=== PATIENT | female | born 1950 | race Caucasian/White ===

== ENCOUNTER → 2018-04-03 09:37 | Outpatient (CLI) | payer MEDICARE, OTHER, SELFPAY ==
--- NOTE | 2018-04-03 | DI.MRI.S_ITS ---
PROCEDURE: MR CERVICAL SPINE WO CON INDICATIONS: CERVICAL SPINE RADICULOPATHY TECHNIQUE: Noncontrast sagittal T1 spin echo and T2 fast spin echo, sagittal STIR, foraminal oblique sagittal T2 fast spin echo, and axial gradient echo or T2 fast spin echo through the cervical spine. COMPARISON: None. FINDINGS: Image quality: Excellent. Alignment and Curvature: Grade 1 retrolisthesis of C5 on C6. Bone Marrow: Multilevel degenerative spurring primarily involving the mid to lower cervical spine. Spinal Cord: Visualized spinal cord has normal size and signal. No cerebellar tonsillar herniation. Paraspinous Soft Tissues: No paravertebral masses. Prevertebral soft tissues are normal in thickness. C2-C3: Bilateral uncovertebral arthropathy and posterior intervening disc osteophyte complex, which is mildly asymmetric, right greater than left. Mild bilateral facet disease. No definite canal stenosis. No left foraminal stenosis. Mild right foraminal narrowing C3-C4: Bilateral uncovertebral arthropathy and posterior intervening disc osteophyte complex, and bilateral facet disease, right slightly greater than left. No definite canal stenosis. Mild to moderate right foraminal narrowing. No definite left foraminal stenosis C4-C5: Bilateral uncovertebral arthropathy and posterior intervening disc osteophyte complex, and bilateral facet arthropathy, with minimal canal narrowing partial effacement of the anterior thecal sac. No definite foraminal stenosis. C5-C6: Bilateral uncovertebral arthropathy and posterior intervening disc osteophyte complex, with superimposed right paracentral disc osteophyte protrusion. Bilateral facet arthropathy. Moderate primarily right-sided canal narrowing. Moderate left and right foraminal narrowing C6-C7: Bilateral uncovertebral arthropathy and posterior intervening disc osteophyte complex, and bilateral facet disease. Mild canal narrowing. Severe left and moderate right foraminal stenoses C7-T1: No canal stenosis. Mild bilateral foraminal narrowing IMPRESSION: Multilevel cervical disc degeneration and facet arthropathy. Moderate primarily right sided C5-C6 canal narrowing. Severe C6-C7 left foraminal stenosis. Additional diffuse bilateral foraminal stenoses as detailed above by spinal level. Grade 1 retrolisthesis of C5 on C6. Dictated by: Johnathon Weaver M.D. on 04/03/2018 at 12:51 Approved by: Johnathon Weaver M.D. on 04/03/2018 at 13:00
== END ==
PROVIDERS: PCP Internal Medicine; Visit Provider Orthopaedic Surgery Orthopaedic Surgery of the Spine
DX: M47.22 Other spondylosis with radiculopathy, cervical region (principal)
CPT/HCPCS: 72141

== ENCOUNTER → 2018-04-15 15:01 | Outpatient (CLI) | payer MEDICARE, OTHER, SELFPAY ==
[2018-04-15 15:36] LABS: Add Manual Diff / Slide Review NO; Eosinophils Percent Auto 7.5 % (2-4); Hematocrit 41.6 % (36-46); Hemoglobin 14.1 g/dL (12.0-16.0); Lymphocytes Percent Auto 32.7 % (25-40); Mean Corpuscular HGB Conc 33.9 % (30-36); Mean Corpuscular Volume 94.5 fL (80-100); Monocytes Percent Auto 7.7 % (3-14); Neutrophils Absolute Auto 3200 /uL (3000-5900); Neutrophils Percent Auto 51.1 % (50-75); Platelet Count 226 X10^3/uL (150-400); Red Cell Distribution Width 12.9 % (11.6-14.8); White Blood Cell Count 6.3 X10^3/uL (4.5-11.0)
[2018-04-15 16:18] LABS: BUN Creatinine Ratio 34.3 (6-22); Blood Urea Nitrogen 24 mg/dL (7-17); Calcium 9.7 mg/dL (8.4-10.2); Carbon Dioxide 29 mmol/L (22-32); Chloride 99 mmol/L (98-107); Estimated Glomerular Filt Rate > 60.0 mL/min (>60); Glucose 143 mg/dL (80-110); HEMOLYSIS < 15 (0-50); Potassium 4.3 mmol/L (3.4-5.1); Sodium 139 mmol/L (137-145)
== END ==
PROVIDERS: PCP Internal Medicine; Visit Provider Orthopaedic Surgery Orthopaedic Surgery of the Spine
DX: Z01.818 Encounter for other preprocedural examination (principal)
CPT/HCPCS: 36415; 80048; 85025; 93005

== ENCOUNTER 2018-05-03 06:00 | Day surgery (SDC) | payer MEDICARE, OTHER, SELFPAY ==
[2018-04-24 10:56] VITALS: BMI 21.6
[2018-05-03] VITALS (13 sets, daily range): BP systolic 97–128; BP diastolic 53–77; PULSE 64–76; RESP 10–18; TEMP 36–36.7; O2SAT 95–99; BMI 21.6
--- NOTE | 2018-05-03 07:23 | SUR.OPER ---
Supine on padded OR bed, head on pillow, arm padded and tucked at side, legs uncrossed, safety belt at thigh, tape over blanket over lower legs .
[2018-05-03] MEDS: ACETAMINOPHEN 325 MG TABLET 975 MG PO (07:32)
[2018-05-03] MEDS: LACTATED RINGERS 1,000 ML 42 ML IV (07:33)
--- NOTE | 2018-05-03 08:02 | PM.PREOP ---
Pre-operative Note Interval Note Pre-op Check: History & Physical Reviewed by Physician, Exam Performed and History & Physical exam performed today
[2018-05-03] MEDS: CLINDAMYCIN 600 MG/50 ML PIGGYBACK 50 MG IV ×2 (08:15→16:21)
--- NOTE | 2018-05-03 09:51 | P.OP_ITS ---
Operative Date/Time/Diagnoses - Date of procedure: 05/03/18 Time of procedure: 08:18 Pre-op diagnosis: 1. C5-6, C6-7 spinal stenosis 2. C5-6, C6-7 spondylosis with radiculopathy Post-op diagnosis: same Procedure & Clinicians Procedure: 1. C5-6 C6-7 anterior cervical diskectomy and fusion 2. C5-6 C6-7 anterior interbody cage placement 3. C5-6 C6-7 anterior instrumentation with plate and screw placement in C5, C6 and C7 vertebrae 4. Utilization of microsurgical technique and operating microscope Same procedure as scheduled: Yes Indications: Patient has been having chronic neck pain and worsening cervical radiculopathy. Patient failed multiple conservative management with worsening pain weakness and numbness in her upper extremity. Patient has been having difficulty performing activity of daily living. After discussing risks benefits of treatment options, patient elected proceed with surgery. Surgeon: Gloria Bustamante Horticultural Specialty Grower Field: Rosa Cabral Click Yes if Unassisted: No Anesthesia Type: General Operative Notes Closure Type: primary Specimen(s): none sent Implants & Drains: Globus extend plate and interbody cage Estimated Blood Loss (mL): 50 Blood products transfused: none Procedure in detail: Patient was seen in the preoperative area. Risks and benefits of the surgery was discussed with the patient. Operative consent was obtained and placed in the chart. Patient was then taken to the operative room. Prophylactic antibiotic was given less than 0.5 hr prior to skin incision. General anesthesia was administered. Patient was placed into a supine position on her radiolucent table. Bilateral shoulders were taped down to allow proper C-arm imaging. Anterior cervical area was prepped and draped in a sterile fashion. Time-out was performed at this time. Using lateral C-arm imaging, the level between C5 and C7 was identified and marked on patient's neck. A oblique incision from midline towards medial border of sternocleidomastoid muscle was made. The platysma muscle was incised in line with skin incision. Metzenbaum scissor was used to develop the plane between the medial border of sternocleidomastoid d and the strap muscles medially. The carotid sheath and its contents were identified and protected behind the hand- held retractor during the entire case. The plane between the carotid sheath and strap muscles was developed with Metzenbaum scissors. Dissection was made down to the level of the anterior cervical fascia. Longus colli muscle was incised on the anterior aspect of vertebral bodies bilaterally from C5-C7. Spinal needle was placed into the C5-6 disc space and confirmed with lateral C-arm imaging. Using microsurgical technique and operative microscope, anterior cervical diskectomy was performed at C5-6 and C6-7 level. This was done by removing the disc material, removing the anterior and posterior osteophytes posterior longitudinal ligaments along with performing bilateral foraminotomies at both levels. Patient was found to have severe central and foraminal stenosis at both levels. Patient's stenosis was fully decompressed after decompression was completed. After the diskectomy was completed, 2 anterior interbody cages were obtained. The cages were packed with globus via cell bone grafting material. One cage each along with the bone grafting material was then packed into the interbody spaces from C5-C7 with one cage into each interbody level. After the cages were placed, the anterior cervical plate was stabilized to the C5-C7 vertebrae using 2 screws at each each level. Total 6 screws were placed. After confirming placement of the hardware with AP and lateral C-arm imaging, the screws were locked into the plate using the locking mechanism and torque limiting screwdriver. After the hardware was placed and confirmed with AP and lateral C-arm imaging, the wound was irrigated with sterile normal saline. The platysma muscle and the subcutaneous tissue was closed with 2-0 Vicryl. The skin was closed with 4- 0Monocryl and Steri-Strips. Patient tolerated the procedure well. Patient was transferred recovery room in stable condition. There were no complications. Complications: none Condition: stable Disposition: PACU Plan for aftercare: Admit to inpatient hospital
[2018-05-03] MEDS: hydrOXYzine pamoate 25 MG CAPSULE PO ×2 (10:20→12:30)
[2018-05-03] MEDS: HYDROMORPHONE 1 MG INJ 0.25 MG IV (10:25)
[2018-05-03] MEDS: HYDROMORPHONE 1 MG INJ 0.5 MG IV (10:36)
--- NOTE | 2018-05-03 11:07 | DI.RAD.S_ITS ---
PROCEDURE: XR CERVICAL SPINE 2V OR 3V INDICATIONS: C5-6,67 A C D F TECHNIQUE: 2 view(s) of the cervical spine were acquired. COMPARISON: [facility], MR, MR CERVICAL SPINE WO CON, 04/03/2018, 10:09. FINDINGS: Intraoperative images demonstrate anterior fusion from C5-7. There is mild cervical straightening. IMPRESSION: Intraoperative images as above. Dictated by: Maryellen Sharma M.D. on 05/03/2018 at 11:27 Approved by: Maryellen Sharma M.D. on 05/03/2018 at 11:32
[2018-05-03] MEDS: SODIUM CHLORIDE 0.9% 1,000 ML 100 ML IV ×2 (11:52→22:46)
[2018-05-03] MEDS: HYDROMORPHONE 0.5 MG INJ IV (11:56)
[2018-05-03] MEDS: OXYCODONE IR 5 MG TABLET PO (12:30)
--- NOTE | 2018-05-03 13:16 | PC.NURSE ---
PT ARRIVED FROM PACU AT APPROX 1055. A/XO3. VSS. RA 97% DRSG C/D/I. SOFT COLLAR IN PLACE. DENIES NUMBNESS IN ALL EXTREMITIES. ABLE TO WIGGLE FINGERS. PULSES PALPABLE. REPORTS 8/10 POST-OP PAIN. MEDICATING PER EMAR. IVF INFUSING PER ORDERS. DENIES NAUSEA. ORIENTED TO ROOM AND CALL SYSTEM. CALL LIGHT WITHIN REACH.
[2018-05-03] MEDS: OXYCODONE IR 10 MG TABLET PO ×3 (14:55→21:18)
--- NOTE | 2018-05-03 15:05 | PT.IIE ---
Current Diagnoses Spondylolisthesis, cervical region (05/03/18) Other spondylosis with radiculopathy, cervical region (05/03/18) Spinal stenosis, cervical region (05/03/18) Surgery Performed Operation Date: 05/03/18 07:45 Actual Procedures p C5-6, C6-7 ACDF w/ Anterior Instrumentation(Not Applicable) - Gloria Bustamante MD Surgical History (Last Updated 04/24/18 @ 11:17 by Rachel Boykin RN) Hx of appendectomy (Acute) Hx of tonsillectomy (Acute) Medical History (Last Updated 04/24/18 @ 11:19 by Rachel Boykin RN) Anxiety and depression (Acute) Arthritis (Acute) BCC (basal cell carcinoma) (Acute) Bronchitis (Acute) GERD (gastroesophageal reflux disease) (Acute) Numbness and tingling (Acute) Seasonal allergies (Acute) Sinus infection (Acute) [place] teeth removed (Acute) Physical Therapy Inpatient Evaluation/Re-Eval M1 PT/OT-IP Prior Functional Status Start: 05/03/18 15:49 Freq: NEEDED Status: Active Protocol: Document 05/03/18 15:05 AB (Rec: 05/03/18 16:01 AB [email or web address]) Medical Review Prior Functional Status Medical History Reviewed Yes Mobility and Gait pt stated that she is independent with all mobilities and ambulation without AD. Social History Household Members spouse Living Arrangements House Number of Floors (Floors) Two Floors Number of Stairs To Enter/Railing? no steps to enter; stays on main level of the house has a daylight basement with 15 steps with L rail ascending where the guest room and exercise room is located Home Environment High Toilet Walk in Shower Built-In Shower Seat Home Equipment Hand Held Shower Employment Status Retired M2 PT-IP Current Condition Start: 05/03/18 15:49 Freq: NEEDED Status: Active Protocol: Document 05/03/18 15:05 AB (Rec: 05/03/18 16:01 AB [email or web address]) Physical Therapy Current Condition Current Condition Evaluation Date 05/03/18 Treatment Diagnosis s/p C5-6, C6-7 anterior cervical discectomy and fusion Onset Date 05/03/18 Precautions Cervical Spine Precautions Soft Collar for Comfort No Heavy Lifting Log Roll M3 PT-IP Subjective Start: 05/03/18 15:49 Freq: NEEDED Status: Active Protocol: Document 05/03/18 15:05 AB (Rec: 05/03/18 16:01 AB [email or web address]) Subjective Physical Therapy Visit Type Type Initial Evaluation Visit Start Time 15:05 Visit Stop Time 15:50 Total Visit Minutes 45 Number of POWER EQUIPMENT MECHANICS INSTRUCTOR Visits 0 Physical Therapy Visit Comments Patient Comments pt agreeable to do therapy; requesting to use the toilet Therapy Pain Assessment Pain When Pain Assessed At Rest Pain Present Pain Present Pain Reported Location Neck Intensity 6 Scale Used Numeric (1 - 10) Pain Management Techniques Timing of Activity with Medications M4 PT-IP Mobility and Gait Start: 05/03/18 15:49 Freq: NEEDED Status: Active Protocol: Document 05/03/18 15:05 AB (Rec: 05/03/18 16:01 AB [email or web address]) PT-Bed Mobility Assessment Rolling Type of Rolling Log Rolling Level of Assist Standby Assistance Supine to Sit Supine to Sit Standby Assistance Sit to Supine Sit to Supine Standby Assistance Scooting Scooting to Edge of Bed Standby Assistance PT-Transfer Assessment Sit to and From Stand Sit to and from Stand Standby Assistance Comments Mobility Comments pt ambulated to the toilet without AD CGA with unsteady gait. pt was able to complete toileting without assist. pt ambulated from toilet towards the sink without AD and was able to maintain standing balance using counter for support SBA while completing hand washing. Gait Assessment Gait Gait Assistance Required: Contact Guard Assist Distance (Feet) (feet) 20 Able to Maintain Weight Bearing Status Yes During Gait Assistive Devices Assistive Device Gait Belt Gait Deviations General Gait Pattern Decreased Stride Length Decreased Feet Clearance Factors Limiting Gait Function Factors Limiting Gait Function Decreased Activity Tolerance Decreased Strength Pain PT-Balance Assessment Sitting Balance and Reactions Static Sitting Balance Ability Good Dynamic Sitting Balance Ability Good Standing Balance and Reactions Static Standing Balance Ability Good Dynamic Standing Balance Ability Fair M5 PT-IP Objective Assessments Start: 05/03/18 15:49 Freq: NEEDED Status: Active Protocol: Document 05/03/18 15:05 AB (Rec: 05/03/18 16:01 AB [email or web address]) Orientation Orientation/Cognition Level of Alertness Alert Orientation Name Age Birthday Month Date Year Day of Week Place Situation Safety Awareness Understands Safety Issues Gross Range of Motion Lower Extremity ROM Assessment Within Functional Limits Strength Lower Extremity Strength Assessment Within Functional Limits M6 PT-IP Treatment Start: 05/03/18 15:49 Freq: NEEDED Status: Active Protocol: Document 05/03/18 15:05 AB (Rec: 05/03/18 16:01 AB [email or web address]) Physical Therapy Treatment Education Education Provided Precautions Weight Bearing Status Post-Op Packet Safety Brace Education Donning [place] Patient Other Treatments Other Treatment Performed pt with soft cervical collar on upon eval; educated on donning/doffing soft collar and able to complete safely M7 PT-IP Assessment and Plan Start: 05/03/18 15:49 Freq: NEEDED Status: Active Protocol: Document 05/03/18 15:05 AB (Rec: 05/03/18 16:01 AB [email or web address]) PT Summary Assessment and Plan Potential Rehabilitation Potential Good Status of Condition at Evaluation Stable Summary Impairments Pain ROM Strength Balance Bed Mobility Transfers Gait Activity Tolerance Assessment Summary pt requiring CGA with mobility with a little unsteadiness during ambulation. pt just had surgery this morning and will continue to assess mobility for safety and if pt will require AD to assist with ambulation but pt will likely progress during hospital stay . pt will have her spouse assist her at home. Goals Bed Mobility Goal Independent Transfer Goal Independent Gait Goal Independent Gait Distance 200 Other Goals up/down 15 steps with L rail descending Days to Meet Goals 2 Frequency of Treatment Frequency Of Treatment Twice a Day Treatment Plan Physical Therapy Treatment Plan Bed Mobility Training Transfer Training Gait Training Therapeutic Exercise Balance Retraining Post Op Education Discharge Planning Hot or Cold Pack Neuromuscular Re-ed Coordination Retraining Manual Therapy Other Recommendations and Next Treatment ambulation, stair climbing Focus Recommendations To Nursing Amount of Assist Needed Standby Assistance Discharge Recommendations PT Discharge Recommendations Home with Assistance
[2018-05-03] MEDS: MONTELUKAST 10 MG TABLET PO (18:25)
[2018-05-03] MEDS: ROSUVASTATIN 10 MG TABLET 5 MG PO (18:25)
[2018-05-03] MEDS: TRAZODONE 50 MG TABLET 150 MG PO (21:18)
[2018-05-03] MEDS: DOCUSATE 100 MG CAPSULE PO (21:19)
[2018-05-03] MEDS: SENNOSIDES 8.6 MG TABLET 17.2 MG PO (21:19)
[2018-05-04] MEDS: CLINDAMYCIN 600 MG/50 ML PIGGYBACK 50 MG IV (00:13)
[2018-05-04] MEDS: OXYCODONE IR 10 MG TABLET PO ×4 (00:16→12:07)
[2018-05-04 00:22] VITALS: BP 103/58; PULSE 78; RESP 18; TEMP 36.7; O2SAT 95
[2018-05-04 04:39] VITALS: BP 100/58; PULSE 68; RESP 19; TEMP 36.3; O2SAT 99
[2018-05-04 05:37] LABS: Hematocrit 36.4 % (36-46); Hemoglobin 12.2 g/dL (12.0-16.0)
--- NOTE | 2018-05-04 07:47 | PM.DS.1 ---
History of Present Illness Date Patient Seen: 05/04/18 Time Patient Seen: 07:47 Chief complaint: [id number] C5-6 C6-7 ACDF W/ANT Narrative: Patient's pain is mild. She had a smoothly last night. She has been drinking water without difficulty. No shortness of breath or chest pain. No fever chills. Able to get up and use the restroom several times. Her 's home and available to assist her. Discharge Providers Date of admission: 05/03/18 06:49 Primary care physician: Verna Farris MD Consults: 05/03/18 11:15 Consult to Occupational Therapy Evaluate & Treat Comment: Physician Instructions: Evaluate and treat Consult to Physical Therapy Evaluate & Treat Comment: Physician Instructions: Evaluate and Treat 05/03/18 20:42 Consult to Respiratory Therapy Evaluate & Treat Comment: pt's expressed concern about possible TRACY Physician Instructions: Evaluate and treat Discharge provider: Marcellus Cerda PA-C Summary Discharge Diagnosis: Postop day 1 status post C5-C6, C6-C7 anterior cervical diskectomy and fusion, C5-C6-C6-C7 anterior interbody cage placement, C5-6 C6-C7 anterior instrumentation with plate and screw placement in C5, C6 and C7 vertebrae. Hospital Course: Patient has been having chronic neck pain and worsening cervical radiculopathy. Patient failed multiple conservative management with worsening pain weakness and numbness in her upper extremity. Patient has been having difficulty performing activity of daily living. After discussing risks benefits of treatment options, patient elected proceed with surgery. Surgeon: Gloria Bustamante Tow Motor Mechanic: Rosa Cabral Click Yes if Unassisted: No Anesthesia Type: General Patient back in her room recovering well and has in stable condition. She is not having any difficulty swallowing. She feels ready for discharge home. Will discharge home today in stable condition. Exam Vital Signs (past 8 hours): Vital Signs - 8 hr 05/04/18 00:22 05/04/18 04:39 Temperature 98.0 F 97.4 F L Pulse Rate 78 68 Respiratory Rate 18 19 Blood Pressure 103/58 L 100/58 L Pulse Oximetry 95 99 Pulse Oximetry 99 Oxygen Delivery Method Room Air Oxygen Flow Rate 0 Narrative Exam Narrative: Pleasant 67-year-old female resting comfortably in bed in no apparent distress. Cervical dressing is clean, dry and intact. 5/5 strength with elbow flexion, elbow extension, wrist flexion and extension, finger flexion compared bilaterally. Sensation grossly intact to light touch bilateral upper extremities. Objective Labs Result Diagrams: 05/04/18 05:21 Labs: Laboratory Results - last 24 hr 05/04/18 05:21 Hgb 12.2 Hct 36.4 Discharge Plan Discharge Plan Patient Disposition: Home, Self-Care Discharge comment: Discharge home today. Patient given prescription for oxycodone to be taken as directed. Patient also given Vistaril for nausea and muscle spasms. Discharge Med Rec/Prescriptions Prescriptions: New oxycodone 5 mg Tablet 5 mg PO Q3HR PRN (Reason: Pain, Moderate) Qty: 45 RF: 0 hydroxyzine pamoate 25 mg Capsule 25 mg PO Q4HR PRN (Reason: Nausea And Vomiting) Qty: 30 RF: 0 Continue valacyclovir 500 mg Tablet 500 mg PO DAILY PRN (Reason: genital herpes) RF: 0 citalopram 20 mg Tablet 20 mg PO QAM RF: 0 lorazepam 0.5 mg Tablet 0.5 mg PO DAILY PRN (Reason: Anxiety) RF: 0 trazodone 150 mg Tablet 150 mg PO BEDTIME RF: 0 montelukast 10 mg Tablet 10 mg PO QPM RF: 0 rosuvastatin [Crestor] 5 mg Tablet 5 mg PO QPM RF: 0 fexofenadine-pseudoephedrine [Rafaela-D 24 Hour] 180-240 mg Tablet Extended Release 24 Hr 1 tab PO QAM PRN (Reason: seasonal allergies) RF: 0 Discontinued meloxicam 7.5 mg Tablet 7.5 mg PO DAILY PRN (Reason: pain) RF: 0 Provider Discharge Instructions Diet: Diet as Tolerated Activity: Soft collar for comfort. Limit bending, lifting, twisting Discharge Data Primary Care Provider: Verna Farris Attending Provider: Gloria Bustamante Admit Date/Time: 05/03/18 06:49
--- NOTE | 2018-05-04 07:52 | P.DS_ITS ---
History of Present Illness Date Patient Seen: 05/04/18 Time Patient Seen: 07:47 Chief complaint: [id number] C5-6 C6-7 ACDF W/ANT Narrative: Patient's pain is mild. She had a smoothly last night. She has been drinking water without difficulty. No shortness of breath or chest pain. No fever chills. Able to get up and use the restroom several times. Her 's home and available to assist her. Discharge Providers Date of admission: 05/03/18 06:49 Primary care physician: Verna Farris MD Consults: 05/03/18 11:15 Consult to Occupational Therapy Evaluate & Treat Comment: Physician Instructions: Evaluate and treat Consult to Physical Therapy Evaluate & Treat Comment: Physician Instructions: Evaluate and Treat 05/03/18 20:42 Consult to Respiratory Therapy Evaluate & Treat Comment: pt's expressed concern about possible TRACY Physician Instructions: Evaluate and treat Discharge provider: Marcellus Cerda PA-C Summary Discharge Diagnosis: Postop day 1 status post C5-C6, C6-C7 anterior cervical diskectomy and fusion, C5-C6-C6-C7 anterior interbody cage placement, C5-6 C6- C7 anterior instrumentation with plate and screw placement in C5, C6 and C7 vertebrae. Hospital Course: Patient has been having chronic neck pain and worsening cervical radiculopathy. Patient failed multiple conservative management with worsening pain weakness and numbness in her upper extremity. Patient has been having difficulty performing activity of daily living. After discussing risks benefits of treatment options, patient elected proceed with surgery. Surgeon: Gloria Bustamante Housekeeper Head: Rosa Cabral Click Yes if Unassisted: No Anesthesia Type: General Patient back in her room recovering well and has in stable condition. She is not having any difficulty swallowing. She feels ready for discharge home. Will discharge home today in stable condition. Exam Vital Signs (past 8 hours): Vital Signs - 8 hr 3 05/04/18 00:22 05/04/18 04:39 Temperature 98.0 F 97.4 F L Pulse Rate 78 68 Respiratory Rate 18 19 Blood Pressure 103/58 L 100/58 L Pulse Oximetry 95 99 Pulse Oximetry 99 Oxygen Delivery Method Room Air Oxygen Flow Rate 0 Narrative Exam Narrative: Pleasant 67-year-old female resting comfortably in bed in no apparent distress. Cervical dressing is clean, dry and intact. 5/5 strength with elbow flexion, elbow extension, wrist flexion and extension, finger flexion compared bilaterally. Sensation grossly intact to light touch bilateral upper extremities. Objective Labs Result Diagrams: 05/04/18 05:21 Labs: Laboratory Results - last 24 hr 05/04/18 05:21 Hgb 12.2 Hct 36.4 Discharge Plan Discharge Plan Patient Disposition: Home, Self-Care Discharge comment: Discharge home today. Patient given prescription for oxycodone to be taken as directed. Patient also given Vistaril for nausea and muscle spasms. Discharge Med Rec/Prescriptions Prescriptions: New oxycodone 5 mg Tablet 5 mg PO Q3HR PRN (Reason: Pain, Moderate) Qty: 45 RF: 0 hydroxyzine pamoate 25 mg Capsule 25 mg PO Q4HR PRN (Reason: Nausea And Vomiting) Qty: 30 RF: 0 Continue valacyclovir 500 mg Tablet 500 mg PO DAILY PRN (Reason: genital herpes) RF: 0 citalopram 20 mg Tablet 20 mg PO QAM RF: 0 lorazepam 0.5 mg Tablet 0.5 mg PO DAILY PRN (Reason: Anxiety) RF: 0 trazodone 150 mg Tablet 150 mg PO BEDTIME RF: 0 montelukast 10 mg Tablet 10 mg PO QPM RF: 0 rosuvastatin [Crestor] 5 mg Tablet 5 mg PO QPM RF: 0 fexofenadine-pseudoephedrine [Rafaela-D 24 Hour] 180-240 mg Tablet Extended Release 24 Hr 1 tab PO QAM PRN (Reason: seasonal allergies) RF: 0 Discontinued meloxicam 7.5 mg Tablet 7.5 mg PO DAILY PRN (Reason: pain) RF: 0 Provider Discharge Instructions Diet: Diet as Tolerated Activity: Soft collar for comfort. Limit bending, lifting, twisting Discharge Data Primary Care Provider: Verna Farris Attending Provider: Gloria Bustamante Admit Date/Time: 05/03/18 06:49
[2018-05-04 08:00] VITALS: BP 114/55; PULSE 73; RESP 18; TEMP 36.4; O2SAT 100
[2018-05-04] MEDS: CITALOPRAM 20 MG TABLET PO (08:18)
[2018-05-04] MEDS: DOCUSATE 100 MG CAPSULE PO (08:18)
[2018-05-04] MEDS: hydrOXYzine pamoate 25 MG CAPSULE PO (08:18)
--- NOTE | 2018-05-04 09:05 | PT.IPTN ---
Current Diagnoses Spondylolisthesis, cervical region (05/03/18) Other spondylosis with radiculopathy, cervical region (05/03/18) Spinal stenosis, cervical region (05/03/18) Surgery Performed Operation Date: 05/03/18 07:45 Actual Procedures p C5-6, C6-7 ACDF w/ Anterior Instrumentation(Not Applicable) - Gloria Bustamante MD Physical Therapy Treatment Note M2 PT-IP Current Condition Start: 05/03/18 15:49 Freq: NEEDED Status: Active Protocol: Document 05/03/18 15:05 AB (Rec: 05/03/18 16:01 AB [email or web address]) Physical Therapy Current Condition Current Condition Evaluation Date 05/03/18 Treatment Diagnosis s/p C5-6, C6-7 anterior cervical discectomy and fusion Onset Date 05/03/18 Precautions Cervical Spine Precautions Soft Collar for Comfort No Heavy Lifting Log Roll M3 PT-IP Subjective Start: 05/03/18 15:49 Freq: NEEDED Status: Active Protocol: Document 05/04/18 09:05 AB (Rec: 05/04/18 10:05 AB [email or web address]) Subjective Physical Therapy Visit Type Type Treatment Note Visit Start Time 09:05 Visit Stop Time 09:21 Total Visit Minutes 16 Number of WEIGHT CLERK Visits 0 Physical Therapy Visit Comments Patient Comments pt stated that she is ready to go home today Therapy Pain Assessment Pain When Pain Assessed At Rest Pain Present Pain Present Pain Reported Location Neck Intensity 3 Scale Used Numeric (1 - 10) Description Spasm Pain Management Techniques Timing of Activity with Medications M4 PT-IP Mobility and Gait Start: 05/03/18 15:49 Freq: NEEDED Status: Active Protocol: Document 05/04/18 09:05 AB (Rec: 05/04/18 10:05 AB [email or web address]) PT-Bed Mobility Assessment Supine to Sit Supine to Sit Standby Assistance Sit to Supine Sit to Supine Standby Assistance Scooting Scooting to Edge of Bed Standby Assistance PT-Transfer Assessment Sit to and From Stand Sit to and from Stand Standby Assistance Gait Assessment Gait Gait Assistance Required: Standby Assistance Contact Guard Assist Distance (Feet) (feet) 200 Able to Maintain Weight Bearing Status Yes During Gait Assistive Devices Assistive Device Gait Belt Orthotic/Prosthetic Devices or Brace: No Factors Limiting Gait Function Factors Limiting Gait Function Decreased Activity Tolerance Decreased Strength Pain Poor Balance Stair Climbing Assessment Evaluation Level of Assist On Stairs Standby Assistance Devices Stair Climbing Assistive Devices Left Railing Technique/Endurance Stair Climbing Direction Ascend and Descend Stair Climbing Technique Step Over Step Number of Steps Climbed 3 Query Text: Stair Climbing Set # Repetitions (reps) 2 M5 PT-IP Objective Assessments Start: 05/03/18 15:49 Freq: NEEDED Status: Active Protocol: Document 05/03/18 15:05 AB (Rec: 05/03/18 16:01 AB [email or web address]) Orientation Orientation/Cognition Level of Alertness Alert Orientation Name Age Birthday Month Date Year Day of Week Place Situation Safety Awareness Understands Safety Issues Gross Range of Motion Lower Extremity ROM Assessment Within Functional Limits Strength Lower Extremity Strength Assessment Within Functional Limits M6 PT-IP Treatment Start: 05/03/18 15:49 Freq: NEEDED Status: Active Protocol: Document 05/04/18 09:05 AB (Rec: 05/04/18 10:05 AB [email or web address]) Physical Therapy Treatment Education Education Provided Precautions Safety M7 PT-IP Assessment and Plan Start: 05/03/18 15:49 Freq: NEEDED Status: Active Protocol: Document 05/04/18 09:05 AB (Rec: 05/04/18 10:05 AB [email or web address]) PT Summary Assessment and Plan Potential Rehabilitation Potential Good Summary Impairments Pain ROM Strength Balance Bed Mobility Transfers Gait Activity Tolerance Progress Towards Goals Progressing Toward Goals Assessment Summary pt doing well with mobility. continues to have unsteadiness with ambulation but without LOB. spouse stated that he is going to walk with her at all times until pt. is steadier. pt plans to go home today. Goals Bed Mobility Goal Independent Transfer Goal Independent Gait Goal Independent Gait Distance 200 Other Goals up/down 15 steps with L rail descending Days to Meet Goals 2 Frequency of Treatment Frequency Of Treatment Twice a Day Treatment Plan Physical Therapy Treatment Plan Bed Mobility Training Transfer Training Gait Training Therapeutic Exercise Balance Retraining Post Op Education Discharge Planning Hot or Cold Pack Neuromuscular Re-ed Coordination Retraining Manual Therapy Other Recommendations and Next Treatment ambulation, stair climbing Focus Recommendations To Nursing Amount of Assist Needed Standby Assistance Discharge Recommendations PT Discharge Recommendations Home with Assistance
--- NOTE | 2018-05-04 11:46 | OT.IP.EVAL ---
Current Diagnoses Spondylolisthesis, cervical region (05/03/18) Other spondylosis with radiculopathy, cervical region (05/03/18) Spinal stenosis, cervical region (05/03/18) Surgery Performed Operation Date: 05/03/18 07:45 Actual Procedures p C5-6, C6-7 ACDF w/ Anterior Instrumentation(Not Applicable) - Gloria Bustamante MD Past Medical History (Last Updated 04/24/18 @ 11:19 by Rachel Boykin RN) Anxiety and depression (Acute) Arthritis (Acute) BCC (basal cell carcinoma) (Acute) Bronchitis (Acute) GERD (gastroesophageal reflux disease) (Acute) Numbness and tingling (Acute) Seasonal allergies (Acute) Sinus infection (Acute) [place] teeth removed (Acute) Surgical History (Last Updated 04/24/18 @ 11:17 by Rachel Boykin RN) Hx of appendectomy (Acute) Hx of tonsillectomy (Acute) Occupational Therapy Inpatient Evaluation/Re-Eval M1 PT/OT-IP Prior Functional Status Start: 05/03/18 15:49 Freq: NEEDED Status: Active Protocol: Document 05/04/18 11:38 ADH (Rec: 05/04/18 11:46 ADH [id number]) Medical Review Prior Functional Status Medical History Reviewed Yes Mobility and Gait pt stated that she is independent with all mobilities and ambulation without AD. Social History Household Members spouse Living Arrangements House Number of Floors (Floors) Two Floors Number of Stairs To Enter/Railing? no steps to enter; stays on main level of the house has a daylight basement with 15 steps with L rail ascending where the guest room and exercise room is located Home Environment High Toilet Walk in Shower Built-In Shower Seat Home Equipment Hand Held Shower Employment Status Retired Additional Social History Comment Pt's spouse very supportive, able to provide assistance prn M2 OT-IP Current Condition Start: 05/04/18 11:38 Freq: Status: Active Protocol: Document 05/04/18 11:38 ADH (Rec: 05/04/18 11:46 ADH [id number]) Occupational Therapy Current Condition Post Operative Precautions Cervical Spine Precautions Soft Collar for Comfort No Heavy Lifting Log Roll M3 OT- IP Subjective and Pain Start: 05/04/18 11:38 Freq: Status: Active Protocol: Document 05/04/18 11:38 ADH (Rec: 05/04/18 11:46 ADH [id number]) OT- Subjective Occupational Therapy Visit Type Type Treatment Note Visit Start Time 11:05 Visit Stop Time 11:37 Occupational Therapy Visit Comments Patient/Caregiver Goals caregiver present and agreeable to OT recommendations OT Pain Assessment Pain Present Pain Present Denied Pain M4 OT- IP ADL's Start: 05/04/18 11:38 Freq: Status: Active Protocol: Document 05/04/18 11:38 ADH (Rec: 05/04/18 11:46 ADH [id number]) OT ADL-Dressing General Eval Upper Body Dressing Ability Independent Lower Body Dressing Ability Contact Guard Assistance Areas Needing Assistance Shoes Comments OT Dressing Comments Pt able to complete TB dressing seated/standing EOB, needing A only to lace up shoes. OT ADL-Toileting General Evaluation Toileting Ability Standby Assistance M6 OT- IP Functional Cognition Start: 05/04/18 11:38 Freq: Status: Active Protocol: Document 05/04/18 11:38 ADH (Rec: 05/04/18 11:46 ADH [id number]) Cognitive Factors Limiting Selfcare Function Cognitive Ability Level of Alertness Alert Patient Orientation Name Month Date Year Day of Week Place Situation Attention Span Ability Capable of Focused Attention Capable of Sustained Attention Ability to Follow Commands Able to Follow Multi-Step Commands Memory Description No Deficits Noted Safety Awareness No Deficits Noted Problem Solving Ability No deficits Noted Executive Function Ability No Deficits Noted Abstract Thinking Ability No Deficits Noted OT- Vision and Hearing OT- Hearing Assessment OT- Hearing Assessment WFL OT- Vision Assessment Visual Acuity WFL M7 OT- IP Mobility and Balance Start: 05/04/18 11:38 Freq: Status: Active Protocol: Document 05/04/18 11:38 ADH (Rec: 05/04/18 11:46 ADH [id number]) OT- Bed Mobility Assessment Rolling Type of Rolling Log Rolling Level of Assistance Independent Supine to Sit Supine to Sit Assist Independent Sit to Supine Sit to Supine Assist Independent Scooting Scooting to Edge of Bed Independent OT-Transfer Assessment Sit to and From Stand Sit to and from Stand Standby Assistance Transfers Transfer Ability Standby Assistance Technique Transfer Destination Bed Chair Transfer Technique Stand Step Pivot Devices Transfer Assistive Devices None OT- Gait Assessment Gait Gait Assistance Required: Standby Assistance M8 OT- IP Objective Assessments Start: 05/04/18 11:38 Freq: Status: Active Protocol: Document 05/04/18 11:38 ADH (Rec: 05/04/18 11:46 ADH [id number]) OT Gross Range of Motion Upper Extremity Range of Motion Assessment Within Functional Limits ROM Impairments pt c/o 'heavy' 'weak' feeling in b shoulders OT Strength Upper Extremity Strength Assessment Within Functional Limits M9 OT- IP Assessment and Plan Start: 05/04/18 11:38 Freq: Status: Active Protocol: Document 05/04/18 11:38 ADH (Rec: 05/04/18 11:46 ADH [id number]) OT Summary Assessment and Plan Potential Rehabilitation Potential Excellent Analytic Complexity at Evaluation Low Summary Progress Towards Goals Safe For Discharge Goals Met Assessment Summary Pt with excellent progression in returning to PLOF s/p cervical procedure. Pt safe for d/c home with spouse support, all needs met. Pt at CGA/SBA level for bADLs at this time, no AD. Goals Patient/Caregiver Education Goal Caregiver Independent Assisting Patient Frequency of Treatment Frequency Of Treatment Once a Day Treatment Plan OT Treatment Plan ADL Training Functional Mobility Patient/Family Education Discharge Planning Discharge Recommendations OT Discharge Recommendations Home with Assistance Home Equipment Needs no equipment needs
--- NOTE | 2018-05-04 13:33 | PC.NURSE ---
Feels ready for d/c home. Throat still sore, hard to swallow but can w/out choking. Discussed if this persists or gets worse she needs to make her doctor aware. Discussed use of ice pack to the back of the neck, cervical collar, utilizing cool or cold fluids and foods. Softer warmed foods can make swallowing easier. Has seen PT/OT and received their final instructions. Spouse here at time of d/c. Rx called in by Dr. Alba for vistaril and received rx for oxycodone printed this am. Reviewed general d/c instructions. Questions answered. Pt d/c home via auto w/spouse.
== END 2018-05-04 12:55 | disposition home or self-care (01) ==
LOC: AC 05-04 11:55 → OR 05-04 13:43 → AC 05-04 13:44
PROVIDERS: PCP Internal Medicine; Visit Provider Orthopaedic Surgery Orthopaedic Surgery of the Spine
PROC: (CPT 22551; principal; 2018-05-03 07:45)
DX: M47.22 Other spondylosis with radiculopathy, cervical region (principal); M43.12 Spondylolisthesis, cervical region; M48.02 Spinal stenosis, cervical region
CPT/HCPCS: 22551; 22552; 22853; 22845; 36415; 36592; 72040; 76001; 85014; 85018; 97116; 97161; 97530; 97535; C1776; J1100; J1170; J2250; J2405; J2704; J3010

== ENCOUNTER → 2018-07-23 15:21 | Outpatient (CLI) | payer MEDICARE, OTHER, SELFPAY ==
[2018-05-03 10:56] VITALS: BMI 21.6
--- NOTE | 2018-07-23 | DI.MG.S_ITS ---
BILATERAL DIGITAL SCREENING MAMMOGRAM 3D/2D WITH CAD: 07/23/2018 CLINICAL: Routine screening. Comparison is made to exams dated: 05/07/2017 mammogram, 06/12/2016 mammogram, and 06/07/2015 mammogram - [facility]. The tissue of both breasts is extremely dense, which lowers the sensitivity of mammography. Current study was also evaluated with a Computer Aided Detection (CAD) system. No significant masses, calcifications, or other findings are seen in either breast. There is a linear scar marker overlying the upper right breast/axilla. There has been no significant interval change. IMPRESSION: NEGATIVE There is no mammographic evidence of malignancy. A 1 year screening mammogram is recommended. This exam was interpreted at Station ID: [id number]. NOTE: For mammograms, a report in lay terms will be sent to the patient. Approximately 15% of breast malignancies will not be visualized mammographically. In the management of a palpable breast mass, a negative mammogram must not discourage biopsy of a clinically suspicious lesion. Electronically Signed By: Ambrosio Perdomo M.D. ecl/:07/23/2018 23:26:23 letter sent: Normal Exam ACR BI-RADS Category 1: Negative 3341F
== END ==
PROVIDERS: PCP Internal Medicine; Visit Provider Internal Medicine
DX: Z12.31 Encounter for screening mammogram for malignant neoplasm of breast (principal)
CPT/HCPCS: 77063; 77067

== ENCOUNTER → 2019-02-06 07:29 | Outpatient (CLI) | payer MEDICARE, OTHER, SELFPAY ==
[2018-05-03 10:56] VITALS: BMI 21.6
[2019-02-06 08:35] LABS: BUN Creatinine Ratio 24.4 (6-22); Blood Urea Nitrogen 22 mg/dL (7-17); Calcium 9.7 mg/dL (8.4-10.2); Carbon Dioxide 30 mmol/L (22-32); Chloride 97 mmol/L (98-107); Cholesterol 177 mg/dL (140-199); Estimated Glomerular Filt Rate > 60.0 mL/min (>60); Glucose 94 mg/dL (80-110); HDL Cholesterol 83 mg/dL (40-60); HEMOLYSIS < 15 (0-50); LDL Cholesterol Calculated 83 mg/dL (<100); Potassium 4.3 mmol/L (3.4-5.1); Sodium 137 mmol/L (137-145); Triglycerides 54 mg/dL (35-150)
== END ==
PROVIDERS: PCP Internal Medicine; Visit Provider Internal Medicine
DX: E78.5 Hyperlipidemia, unspecified (principal); Z13.1 Encounter for screening for diabetes mellitus
CPT/HCPCS: 36415; 80048; 80061

== ENCOUNTER → 2019-03-20 10:30 | Outpatient (CLI) | payer MEDICARE, OTHER, SELFPAY ==
[2018-05-03 10:56] VITALS: BMI 21.6
[2019-03-20 12:11] LABS: Add Manual Diff / Slide Review NO; Basophils Absolute Auto 0 /uL (0-100); Basophils Percent Auto 0.7 % (0-2); Eosinophils Absolute Auto 400 /uL (0-450); Eosinophils Percent Auto 6.9 % (2-4); Hematocrit 45.2 % (36-46); Hemoglobin 14.8 g/dL (12.0-16.0); Lymphocytes Absolute Auto 1600 /uL (1100-4500); Mean Corpuscular HGB Conc 32.8 % (30-36); Mean Corpuscular Hemoglobin 31.5 PG (26-34); Mean Corpuscular Volume 95.9 fL (80-100); Monocytes Absolute Auto 500 /uL (0-900); Monocytes Percent Auto 8.6 % (3-14); Neutrophils Absolute Auto 2900 /uL (1500-7000); Neutrophils Percent Auto 53.8 % (50-75); Platelet Count 273 X10^3/uL (150-400); Red Blood Cell Count 4.71 X10^6/uL (4.0-5.2); Red Cell Distribution Width 12.6 % (11.6-14.8); White Blood Cell Count 5.4 X10^3/uL (4.5-11.0)
== END ==
PROVIDERS: PCP Internal Medicine; Visit Provider Internal Medicine
DX: R53.83 Other fatigue (principal); R23.8 Other skin changes
CPT/HCPCS: 36415; 85025

== ENCOUNTER → 2019-07-16 16:17 | Outpatient (CLI) | payer MEDICARE, OTHER, SELFPAY ==
[2018-05-03 10:56] VITALS: BMI 21.6
[2019-07-16 17:28] LABS: Alanine Aminotransferase 24 IU/L (9-52); Albumin 4.6 g/dL (3.5-5.0); Albumin Globulin Ratio 1.8 (1.0-2.8); Alkaline Phosphatase 59 U/L (38-126); Aspartate Aminotransferase 29 IU/L (14-36); BUN Creatinine Ratio 25.7 (6-22); Bilirubin Total 0.4 mg/dL (0.2-1.3); Blood Urea Nitrogen 18 mg/dL (7-17); Calcium 9.8 mg/dL (8.4-10.2); Carbon Dioxide 29 mmol/L (22-32); Chloride 100 mmol/L (98-107); Estimated Glomerular Filt Rate > 60.0 mL/min (>60); Globulin 2.5 g/dL (1.7-4.1); Glucose 66 mg/dL (80-110); HEMOLYSIS < 15 (0-50); Potassium 4.5 mmol/L (3.4-5.1); Sodium 137 mmol/L (137-145); Total Protein 7.1 g/dL (6.3-8.2)
== END ==
PROVIDERS: PCP Internal Medicine; Visit Provider Internal Medicine
DX: L29.9 Pruritus, unspecified (principal)
CPT/HCPCS: 36415; 80053

== ENCOUNTER → 2019-07-24 08:58 | Outpatient (CLI) | payer MEDICARE, OTHER, SELFPAY ==
[2018-05-03 10:56] VITALS: BMI 21.6
--- NOTE | 2019-07-24 | DI.MG.S_ITS ---
BILATERAL DIGITAL SCREENING MAMMOGRAM 3D/2D WITH CAD: 07/24/2019 CLINICAL: Routine screening. Comparison is made to exams dated: 07/23/2018 mammogram - [facility], 06/12/2016 mammogram, and 05/07/2017 mammogram - [facility]. The tissue of both breasts is extremely dense, which lowers the sensitivity of mammography. Current study was also evaluated with a Computer Aided Detection (CAD) system. No significant masses, calcifications, or other findings are seen in either breast. There has been no significant interval change. IMPRESSION: NEGATIVE There is no mammographic evidence of malignancy. A 1 year screening mammogram is recommended. This exam was interpreted at Station ID: [id number]. NOTE: For mammograms, a report in lay terms will be sent to the patient. Approximately 15% of breast malignancies will not be visualized mammographically. In the management of a palpable breast mass, a negative mammogram must not discourage biopsy of a clinically suspicious lesion. Electronically Signed By: Jean gaspar/funmi:07/24/2019 12:22:58 letter sent: Normal Exam ACR BI-RADS Category 1: Negative 3341F
[2019-07-24 09:53] LABS: Alanine Aminotransferase 30 IU/L (9-52); Albumin 4.8 g/dL (3.5-5.0); Albumin Globulin Ratio 1.8 (1.0-2.8); Alkaline Phosphatase 61 U/L (38-126); Aspartate Aminotransferase 35 IU/L (14-36); BUN Creatinine Ratio 27.1 (6-22); Bilirubin Total 0.6 mg/dL (0.2-1.3); Blood Urea Nitrogen 19 mg/dL (7-17); Calcium 9.9 mg/dL (8.4-10.2); Carbon Dioxide 29 mmol/L (22-32); Chloride 97 mmol/L (98-107); Estimated Glomerular Filt Rate > 60.0 mL/min (>60); Globulin 2.7 g/dL (1.7-4.1); Glucose 95 mg/dL (80-110); HEMOLYSIS < 15 (0-50); Potassium 4.5 mmol/L (3.4-5.1); Sodium 137 mmol/L (137-145); Total Protein 7.5 g/dL (6.3-8.2)
--- NOTE | 2019-07-24 10:16 | DI.CT.S_ITS ---
PROCEDURE: CT ABDOMEN W CON INDICATIONS: Hypoglycemia TECHNIQUE: After the administration of oral and intravenous contrast, 5 mm thick sections acquired from the diaphragms to the iliac crests. 5 mm thick coronal and sagittal reformats were acquired. For radiation dose reduction, the following was used: automated exposure control, adjustment of mA and/or kV according to patient size. COMPARISON: None. FINDINGS: Image quality: Excellent. Lung bases: Lung bases are clear. Heart size is normal. Minimal pericardial effusion. Solid organs: Liver is normal in size and enhancement. Multiple tiny liver hypodensities likely represent cysts versus hemangiomas. Gallbladder is unremarkable. Biliary system is non dilated. Pancreas enhances normally. Spleen is normal in size and enhancement. No adrenal nodules. Kidneys are normal in size, without hydronephrosis. Peritoneum and bowel: Contrast enhanced bowel loops appear normal in caliber. No free fluid or air. Nodes and vessels: No retroperitoneal or mesenteric adenopathy by size criteria. Aorta and inferior vena cava are normal in size. Bones: No suspicious bony lesions. No vertebral body compression fractures. Miscellaneous: No ventral hernias. IMPRESSION: 1. No evidence of pancreatic mass. 2. Multiple tiny cysts versus hemangiomata incidentally noted in the liver. Dictated by: Tom Christie M.D. on 07/24/2019 at 11:22 Approved by: Tom Christie M.D. on 07/24/2019 at 11:27
== END ==
PROVIDERS: PCP Internal Medicine; Visit Provider Internal Medicine
DX: Z12.31 Encounter for screening mammogram for malignant neoplasm of breast (principal); E16.2 Hypoglycemia, unspecified; L29.9 Pruritus, unspecified
CPT/HCPCS: 36415; 74160; 77063; 77067; 80053; Q9967

== ENCOUNTER → 2020-05-11 07:32 | Outpatient (CLI) | payer MEDICARE, OTHER, SELFPAY ==
[2018-05-03 10:56] VITALS: BMI 21.6
[2020-05-11 07:42] LABS: Bacteria Urine None Seen; RBC Urine None Seen (0-5/HPF); WBC Urine None Seen (0-5/HPF)
[2020-05-11 08:08] LABS: Appearance Urine UA CLOUDY; Bilirubin Urine UA NEGATIVE (NEGATIVE); Color Urine UA YELLOW; Glucose Urine UA NEGATIVE (Negative); Ketones Urine UA NEGATIVE (NEGATIVE); Leukocyte Esterase Urine UA NEGATIVE (NEGATIVE); Nitrite Urine UA NEGATIVE (Negative); Occult Blood Urine UA NEGATIVE (Negative); Protein Urine UA NEGATIVE (Negative); Urobilinogen Urine UA 0.2 E.U./dL (0.2)
[2020-05-11 08:21] LABS: Amorphous Sediment Urine 4+; Culture Indicated Urine Cult Not Indicated; Squamous Epithelial Cell Urine 0-1 /HPF (0-5/HPF)
[2020-05-11 08:32] LABS: Alanine Aminotransferase 25 IU/L (<35); Albumin 4.7 g/dL (3.5-5.0); Albumin Globulin Ratio 1.9 (1.0-2.8); Alkaline Phosphatase 56 U/L (38-126); Aspartate Aminotransferase 34 IU/L (14-36); BUN Creatinine Ratio 25.4 (6-22); Bilirubin Total 0.5 mg/dL (0.2-1.3); Blood Urea Nitrogen 18 mg/dL (7-17); Calcium 9.6 mg/dL (8.4-10.2); Carbon Dioxide 31 mmol/L (22-32); Chloride 97 mmol/L (98-107); Cholesterol 185 mg/dL (140-199); Estimated Glomerular Filt Rate > 60.0 mL/min (>60); Globulin 2.5 g/dL (1.7-4.1); Glucose 93 mg/dL (80-110); HDL Cholesterol 85 mg/dL (40-60); HEMOLYSIS < 15 (0-50); LDL Cholesterol Calculated 84 mg/dL (<100); Potassium 4.2 mmol/L (3.4-5.1); Sodium 133 mmol/L (137-145); Total Protein 7.2 g/dL (6.3-8.2); Triglycerides 80 mg/dL (35-150)
[2020-05-11 21:29] LABS: Hep C Virus Ab w/Reflex Quant NEGATIVE s/c (NEGATIVE)
== END ==
PROVIDERS: PCP Internal Medicine; Referring Provider Internal Medicine; Visit Provider Internal Medicine
DX: Z00.00 Encounter for general adult medical examination without abnormal findings (principal); E78.5 Hyperlipidemia, unspecified; R30.0 Dysuria
CPT/HCPCS: 36415; 80053; 80061; 81001; 86803

== ENCOUNTER → 2020-05-21 10:25 | Outpatient (CLI) | payer MEDICARE, OTHER, SELFPAY ==
[2018-05-03 10:56] VITALS: BMI 21.6
[2020-05-21 12:29] LABS: Add Manual Diff / Slide Review NO; Basophils Absolute Auto 0 /uL (0-100); Basophils Percent Auto 0.9 % (0-2); Eosinophils Absolute Auto 400 /uL (0-450); Eosinophils Percent Auto 7.3 % (2-4); Hematocrit 43.8 % (36-46); Hemoglobin 14.5 g/dL (12.0-16.0); Lymphocytes Absolute Auto 1700 /uL (1100-4500); Lymphocytes Percent Auto 32.1 % (25-40); Mean Corpuscular Hemoglobin 31.9 PG (26-34); Mean Corpuscular Volume 96.8 fL (80-100); Monocytes Absolute Auto 500 /uL (0-900); Monocytes Percent Auto 8.7 % (3-14); Neutrophils Absolute Auto 2800 /uL (1500-7000); Platelet Count 263 X10^3/uL (150-400); Red Blood Cell Count 4.53 X10^6/uL (4.0-5.2); Red Cell Distribution Width 12.7 % (11.6-14.8); White Blood Cell Count 5.5 X10^3/uL (4.5-11.0)
== END ==
PROVIDERS: PCP Internal Medicine; Referring Provider Internal Medicine; Visit Provider Internal Medicine
DX: R23.8 Other skin changes (principal)
CPT/HCPCS: 36415; 85025

== ENCOUNTER → 2020-07-26 16:19 | Outpatient (CLI) | payer MEDICARE, OTHER, SELFPAY ==
[2018-05-03 10:56] VITALS: BMI 21.6
--- NOTE | 2020-07-26 16:30 | DI.MG.S_ITS ---
Patient Name: JERE MCCLURE date: 1950 Sex: F Attending Physician: Brenton Indications: Date: 07/26/2020 16:25 At the request of: MADISON LANDIS Procedure: MM screening mammo BI BILATERAL DIGITAL SCREENING MAMMOGRAM 3D/2D WITH CAD: 07/26/2020 CLINICAL: Routine screening. Comparison is made to exams dated: 07/24/2019 mammogram, 07/23/2018 mammogram - [facility], and 05/07/2017 mammogram - [facility]. The tissue of both breasts is heterogeneously dense. This may lower the sensitivity of mammography. Current study was also evaluated with a Computer Aided Detection (CAD) system. No significant masses, calcifications, or other findings are seen in either breast. There has been no significant interval change. IMPRESSION: NEGATIVE There is no mammographic evidence of malignancy. A 1 year screening mammogram is recommended. This exam was interpreted at Station ID: [id number]. NOTE: For mammograms, a report in lay terms will be sent to the patient. Approximately 15% of breast malignancies will not be visualized mammographically. In the management of a palpable breast mass, a negative mammogram must not discourage biopsy of a clinically suspicious lesion. Electronically Signed By: Dulce griffith/funmi:07/26/2020 17:01:26 letter sent: Normal Exam ACR BI-RADS Category 1: Negative 3341F
== END ==
PROVIDERS: PCP Internal Medicine; Referring Provider Internal Medicine; Visit Provider Internal Medicine
DX: Z12.31 Encounter for screening mammogram for malignant neoplasm of breast (principal)
CPT/HCPCS: 77063; 77067

== ENCOUNTER → 2021-08-09 17:05 | Outpatient (CLI) | payer MEDICARE, OTHER, SELFPAY ==
[2018-05-03 10:56] VITALS: BMI 21.6
--- NOTE | 2021-08-09 | DI.MG.S_ITS ---
BILATERAL DIGITAL SCREENING MAMMOGRAM 3D/2D WITH CAD: 08/09/2021 CLINICAL: Routine screening. Comparison is made to exams dated: 07/26/2020 mammogram, 07/24/2019 mammogram, and 07/23/2018 mammogram - [facility]. The tissue of both breasts is heterogeneously dense. This may lower the sensitivity of mammography. Current study was also evaluated with a Computer Aided Detection (CAD) system. No significant masses, calcifications, or other findings are seen in either breast. There has been no significant interval change. IMPRESSION: NEGATIVE There is no mammographic evidence of malignancy. A 1 year screening mammogram is recommended. This exam was interpreted at Station ID: [id number]. NOTE: For mammograms, a report in lay terms will be sent to the patient. Approximately 15% of breast malignancies will not be visualized mammographically. In the management of a palpable breast mass, a negative mammogram must not discourage biopsy of a clinically suspicious lesion. Electronically Signed By: Jhon moran/funmi:08/10/2021 07:44:36 letter sent: Normal Exam ACR BI-RADS Category 1: Negative 3341F
== END ==
PROVIDERS: PCP Internal Medicine; Referring Provider Internal Medicine; Visit Provider Internal Medicine
DX: Z12.31 Encounter for screening mammogram for malignant neoplasm of breast (principal)
CPT/HCPCS: 77063; 77067

== ENCOUNTER → 2022-07-13 13:41 | Outpatient (CLI) | payer MEDICARE, OTHER, SELFPAY ==
[2018-05-03 10:56] VITALS: BMI 21.6
--- NOTE | 2022-07-13 | DI.ECHO.S_ITS ---
[facility]---------+ [facility] +---------+ : : [address] : : : : [id number] : : : : Phone: [phone] +---------+ Echocardiogram Report + + :Name: JERE MCCLURE Study Date: 07/13/2022 Height: 65 in : :[facility] ReadingLocation: Weight: 125 lb : : Gender: Female BSA: 1.6 m2 : :: 1950 Age: 72 yrs BP: 143/78 mmHg: :Reason For Study: Syncope : :Ordering Physician: SABIHA : :MADISON Performed By: Boby Batista : :Referring: MADISON LANDIS : + + Interpretation Summary 1) Normal left ventricular thickness, size, wall motion, and systolic function (EF 60-65%). 2) Normal right ventricular size and function. 3) No significant valvular abnormalities. 4) There is a trivial to small pericardial effusion noted. There are no echocardiographic or Doppler indications for cardiac tamponade. 5) No prior Echo available for comparison. Procedure: A two-dimensional transthoracic echocardiogram with color flow and Doppler was performed. The study quality was technically adequate. There is no prior echocardiogram noted for this patient. The patient was in normal sinus rhythm during the exam. Left Ventricle: The left ventricle is normal in size and wall thickness. Left ventricular systolic function is normal. The ejection fraction is estimated to be 60-65%. There are no focal wall motion abnormalities. Diastolic parameters suggest probable normal left ventricular diastolic function and normal filling pressures. Right Ventricle: The right ventricle is normal in size and function. Atria: The left atrium is moderately dilated. The right atrium is mildly dilated. The interatrial septum grossly appears intact with no obvious evidence for an atrial septal defect. Mitral Valve: The mitral valve is normal in structure and function. There is trace mitral regurgitation. Aortic Valve: The aortic valve is normal in structure and function. There is no aortic valve stenosis. No aortic regurgitation is present. Tricuspid Valve: The tricuspid valve is normal in structure and function. There is trace tricuspid regurgitation. Pulmonary artery pressures cannot be estimated because of the lack of a measurable TR jet velocity. Pulmonic Valve: The pulmonic valve is not well seen, but is grossly normal. There is no pulmonic valvular regurgitation. Great Vessels: The aortic root is normal size. The dimensions of the ascending aorta are normal. The IVC is of normal diameter and collapses greater than 50% with a sniff. This suggests a low right atrial pressure of 3 mm Hg. Pericardium/ Pleura There is a trivial to small pericardial effusion noted. There are no echocardiographic or Doppler indications for cardiac tamponade. There is no pleural effusion. MMode/2D Measurements & Calculations LVIDd: 4.9 cm LVOT diam: 2.0 cm LVIDs: 3.0 cm Ao root diam: 2.7 cm FS: 38.8 % asc Aorta Diam: 2.7 cm IVSd: 0.70 cm LVPWd: 0.60 cm LV milner. diameter/BSA (cm/m^2): 3.0 LV sys. diameter/BSA (cm/m^2): 1.9 LA dimension: 3.1 cm RA long axis: 5.5 cm LA A2 area: 14.4 cm2 LA A4 area: 21.4 cm2 LA length (vol): 4.5 cm LA vol: 57.9 ml LA vol index: 35.7 ml/m2 TAPSE_phl: 2.3 cm Doppler Measurements & Calculations Ao V2 max: 115.0 cm/sec LVOT Max Joaquin: 106.0 cm/sec Ao V2 mean: 82.5 cm/sec LV V1 max P.5 mmHg Ao max P.0 mmHg LV V1 VTI: 23.9 cm Ao mean P.0 mmHg MAI(I,D): 2.9 cm2 Ao V2 VTI: 26.3 cm MAI(V,D): 2.9 cm2 sev ratio: 0.91 MAI indexed to BSA (cm^2/m^2): 1.8 MV E max joaquin: 95.5 cm/sec SV(LVOT): 75.1 ml MV A max joaquin: 60.0 cm/sec MV E/A: 1.6 Med Peak E' Joaquin: 10.2 cm/sec E/E' med: 9.4 Lat Peak E' Joaquin: 10.4 cm/sec E/E' lat: 9.2 E/e' average: 9.3 MV dec time: 0.22 sec AV VR_phl: 0.92 MV P1/2t-pr_phl: 63.0 msec MAI(VTI)/BSA_phl: 1.8 Reading Physician:03:27 PM
== END ==
PROVIDERS: PCP Internal Medicine; Referring Provider Internal Medicine; Visit Provider Internal Medicine
DX: R42 Dizziness and giddiness (principal); R55 Syncope and collapse; I31.3 Pericardial effusion (noninflammatory)
CPT/HCPCS: 93306

== ENCOUNTER → 2022-08-10 13:19 | Outpatient (CLI) | payer MEDICARE, OTHER, SELFPAY ==
[2018-05-03 10:56] VITALS: BMI 21.6
--- NOTE | 2022-08-10 | DI.MG.S_ITS ---
BILATERAL DIGITAL SCREENING MAMMOGRAM 3D/2D WITH CAD: 08/10/2022 CLINICAL: Routine screening. Comparison is made to exams dated: 08/09/2021 mammogram, 07/26/2020 mammogram, and 07/24/2019 mammogram - [facility]. Both breasts are heterogeneously dense, which may obscure small masses (category c / 51-75% glandular tissue). Current study was also evaluated with a Computer Aided Detection (CAD) system. No significant masses, calcifications, or other findings are seen in either breast. There has been no significant interval change. IMPRESSION: NEGATIVE There is no mammographic evidence of malignancy. A 1 year screening mammogram is recommended. Based on the Tyrer Cuzick model (a risk assessment model) the patient's lifetime risk is 9.9% and her 10 year risk is 6.5%. According to the ACR, ACS, and NCCN guidelines, an annual breast MRI exam along with mammogram is recommended if the patient's lifetime risk is 20% or greater. This exam was interpreted at Station ID: [id number]. NOTE: For mammograms, a report in lay terms will be sent to the patient. Approximately 15% of breast malignancies will not be visualized mammographically. In the management of a palpable breast mass, a negative mammogram must not discourage biopsy of a clinically suspicious lesion. Electronically Signed By: Armand gray/funmi:08/10/2022 14:14:17 letter sent: Normal Exam ACR BI-RADS Category 1: Negative 3341F
== END ==
PROVIDERS: PCP Internal Medicine; Referring Provider Internal Medicine; Visit Provider Internal Medicine
DX: Z12.31 Encounter for screening mammogram for malignant neoplasm of breast (principal)
CPT/HCPCS: 77063; 77067

== ENCOUNTER → 2023-08-09 10:37 | Outpatient (CLI) | payer MEDICARE, OTHER, SELFPAY ==
[2018-05-03 10:56] VITALS: BMI 21.6
[2023-08-09 11:47] LABS: Add Manual Diff / Slide Review NO; Basophils Absolute Auto 100 /uL (0-100); Eosinophils Absolute Auto 300 /uL (0-450); Eosinophils Percent Auto 6.1 % (2-4); Hematocrit 43.3 % (36-46); Hemoglobin 14.7 g/dL (12.0-16.0); Lymphocytes Absolute Auto 1600 /uL (1100-4500); Lymphocytes Percent Auto 30.7 % (25-40); Mean Corpuscular Hemoglobin 32.6 PG (26-34); Mean Corpuscular Volume 95.9 fL (80-100); Monocytes Absolute Auto 500 /uL (0-900); Monocytes Percent Auto 9.4 % (3-14); Neutrophils Absolute Auto 2800 /uL (1500-7000); Neutrophils Percent Auto 52.8 % (50-75); Platelet Count 263 X10^3/uL (150-400); Red Blood Cell Count 4.51 X10^6/uL (4.0-5.2); Red Cell Distribution Width 12.7 % (11.6-14.8); White Blood Cell Count 5.3 X10^3/uL (4.5-11.0)
[2023-08-09 12:06] LABS: Alanine Aminotransferase 30 IU/L (<35); Albumin 4.4 g/dL (3.5-5.0); Albumin Globulin Ratio 1.7 (1.0-2.8); Alkaline Phosphatase 55 U/L (38-126); Aspartate Aminotransferase 31 IU/L (14-36); BUN Creatinine Ratio 24.7 (6-22); Bilirubin Total 0.4 mg/dL (0.2-1.3); Blood Urea Nitrogen 19 mg/dL (7-17); Calcium 9.7 mg/dL (8.4-10.2); Carbon Dioxide 31 mmol/L (22-32); Chloride 99 mmol/L (98-107); Estimated Glomerular Filt Rate > 60 mL/min (>60); Globulin 2.6 g/dL (1.7-4.1); Glucose 92 mg/dL (80-110); HEMOLYSIS < 15 (0-50); Potassium 4.6 mmol/L (3.4-5.1); Sodium 135 mmol/L (137-145)
[2023-08-09 13:02] LABS: TSH w/ Reflex to FT4 1.35 uIU/mL (0.47-4.68)
== END ==
PROVIDERS: PCP Family Medicine; Referring Provider Physician Assistant; Visit Provider Physician Assistant
DX: R55 Syncope and collapse (principal)
CPT/HCPCS: 36415; 80053; 84443; 85025

== ENCOUNTER → 2023-08-15 09:57 | Outpatient (CLI) | payer MEDICARE, OTHER, SELFPAY ==
[2018-05-03 10:56] VITALS: BMI 21.6
--- NOTE | 2023-08-15 | DI.MG.S_ITS ---
BILATERAL DIGITAL SCREENING MAMMOGRAM 3D/2D WITH CAD: 08/15/2023 CLINICAL: Routine screening. Comparison is made to exams dated: 08/10/2022 mammogram, 08/09/2021 mammogram, and 07/26/2020 mammogram - [facility]. Both breasts are heterogeneously dense, which may obscure small masses (category c / 51-75% glandular tissue). Current study was also evaluated with a Computer Aided Detection (CAD) system. No significant masses, calcifications, or other findings are seen in either breast. There has been no significant interval change. IMPRESSION: NEGATIVE There is no mammographic evidence of malignancy. A 1 year screening mammogram is recommended. Based on the Tyrer Cuzick model (a risk assessment model) the patient's lifetime risk is 9.4% and her 10 year risk is 6.7%. According to the ACR, ACS, and NCCN guidelines, an annual breast MRI exam along with mammogram is recommended if the patient's lifetime risk is 20% or greater. This exam was interpreted at Station ID: [id number]. NOTE: For mammograms, a report in lay terms will be sent to the patient. Approximately 15% of breast malignancies will not be visualized mammographically. In the management of a palpable breast mass, a negative mammogram must not discourage biopsy of a clinically suspicious lesion. Electronically Signed By: Jean gaspar/funmi:08/15/2023 17:28:05 letter sent: Normal Exam ACR BI-RADS Category 1: Negative 3341F
== END ==
PROVIDERS: PCP Family Medicine; Referring Provider Family Medicine; Visit Provider Family Medicine
DX: Z12.31 Encounter for screening mammogram for malignant neoplasm of breast (principal)
CPT/HCPCS: 77063; 77067

== ENCOUNTER → 2024-06-25 07:51 | Outpatient (CLI) | payer MEDICARE, OTHER, SELFPAY ==
[2018-05-03 10:56] VITALS: BMI 21.6
[2024-06-25 08:50] LABS: Add Manual Diff / Slide Review NO; Basophils Absolute Auto 0 /uL (0-100); Basophils Percent Auto 0.8 % (0-2); Eosinophils Absolute Auto 400 /uL (0-450); Eosinophils Percent Auto 8.7 % (2-4); Hematocrit 43.4 % (36-46); Hemoglobin 14.7 g/dL (12.0-16.0); Lymphocytes Absolute Auto 1800 /uL (1100-4500); Lymphocytes Percent Auto 37.2 % (25-40); Mean Corpuscular HGB Conc 33.7 % (30-36); Mean Corpuscular Hemoglobin 32.5 PG (26-34); Mean Corpuscular Volume 96.4 fL (80-100); Monocytes Absolute Auto 400 /uL (0-900); Monocytes Percent Auto 8.3 % (3-14); Neutrophils Absolute Auto 2200 /uL (1500-7000); Platelet Count 246 X10^3/uL (150-400); Red Blood Cell Count 4.51 X10^6/uL (4.0-5.2); Red Cell Distribution Width 12.9 % (11.6-14.8); White Blood Cell Count 4.9 X10^3/uL (4.5-11.0)
[2024-06-25 09:15] LABS: Alanine Aminotransferase 25 IU/L (<35); Albumin 4.6 g/dL (3.5-5.0); Albumin Globulin Ratio 2.2 (1.0-2.8); Alkaline Phosphatase 59 U/L (38-126); Aspartate Aminotransferase 35 IU/L (14-36); BUN Creatinine Ratio 19.7 (6-22); Bilirubin Total 0.6 mg/dL (0.2-1.3); Blood Urea Nitrogen 15 mg/dL (7-17); Calcium 9.6 mg/dL (8.4-10.2); Carbon Dioxide 28 mmol/L (22-32); Chloride 100 mmol/L (98-107); Cholesterol 171 mg/dL (140-199); Estimated Glomerular Filt Rate > 60 mL/min (>60); Globulin 2.1 g/dL (1.7-4.1); Glucose 94 mg/dL (80-110); HDL Cholesterol 91 mg/dL (40-60); HEMOLYSIS 30 (0-50); LDL Cholesterol Calculated 66 mg/dL (<100); Potassium 4.6 mmol/L (3.4-5.1); Sodium 133 mmol/L (137-145); Total Protein 6.7 g/dL (6.3-8.2); Triglycerides 70 mg/dL (35-150)
[2024-06-25 09:20] LABS: High Sensitivity CRP - Cardiac < 0.3 mg/L (1.0-3.0)
[2024-06-25 09:40] LABS: TSH w/ Reflex to FT4 2.13 uIU/mL (0.47-4.68)
== END ==
LOC: LAB 07:52
PROVIDERS: PCP Family Medicine; Referring Provider Family Medicine; Visit Provider Family Medicine
DX: E78.5 Hyperlipidemia, unspecified (principal); D64.9 Anemia, unspecified; R53.83 Other fatigue; I95.1 Orthostatic hypotension
CPT/HCPCS: 36415; 80053; 80061; 84443; 85025; 86140

== ENCOUNTER → 2024-08-19 10:01 | Outpatient (CLI) | payer MEDICARE, OTHER, SELFPAY ==
[2018-05-03 10:56] VITALS: BMI 21.6
--- NOTE | 2024-08-19 10:03 | DI.MG.S_ITS ---
BILATERAL DIGITAL SCREENING MAMMOGRAM 3D/2D WITH CAD: 08/19/2024 CLINICAL: Routine screening. Comparison is made to exams dated: 08/15/2023 mammogram, 08/10/2022 mammogram, and 08/09/2021 mammogram - [facility]. The breasts are heterogeneously dense, which may obscure small masses (category c / 51-75% glandular tissue). Current study was also evaluated with a Computer Aided Detection (CAD) system. No significant masses, calcifications, or other findings are seen in either breast. There has been no significant interval change. IMPRESSION: NEGATIVE There is no mammographic evidence of malignancy. A 1 year screening mammogram is recommended. Based on the Tyrer Cuzick model (a risk assessment model) the patient's lifetime risk is 8.9% and her 10 year risk is 6.9%. According to the ACR, ACS, and NCCN guidelines, an annual breast MRI exam along with mammogram is recommended if the patient's lifetime risk is 20% or greater. This exam was interpreted at Station ID: [id number]. NOTE: For mammograms, a report in lay terms will be sent to the patient. Approximately 15% of breast malignancies will not be visualized mammographically. In the management of a palpable breast mass, a negative mammogram must not discourage biopsy of a clinically suspicious lesion. Electronically Signed By: Ana [email or web address]:08/19/2024 17:34:34 letter sent: Normal Exam ACR BI-RADS Category 1: Negative
== END ==
PROVIDERS: PCP Family Medicine; Referring Provider Family Medicine; Visit Provider Family Medicine
DX: Z12.31 Encounter for screening mammogram for malignant neoplasm of breast (principal); R92.333 Mammographic heterogeneous density, bilateral breasts
CPT/HCPCS: 77063; 77067

== ENCOUNTER → 2024-09-22 11:07 | Outpatient (CLI) | payer MEDICARE, OTHER, SELFPAY ==
[2018-05-03 10:56] VITALS: BMI 21.6
[2024-09-22 11:55] LABS: Add Manual Diff / Slide Review NO; Basophils Absolute Auto 0 /uL (0-100); Basophils Percent Auto 0.8 % (0-2); Eosinophils Absolute Auto 200 /uL (0-450); Eosinophils Percent Auto 4.1 % (2-4); Hematocrit 43.9 % (36-46); Hemoglobin 14.7 g/dL (12.0-16.0); Lymphocytes Absolute Auto 1600 /uL (1100-4500); Lymphocytes Percent Auto 27.8 % (25-40); Mean Corpuscular HGB Conc 33.5 % (30-36); Mean Corpuscular Hemoglobin 32.7 PG (26-34); Mean Corpuscular Volume 97.5 fL (80-100); Monocytes Absolute Auto 500 /uL (0-900); Monocytes Percent Auto 8.1 % (3-14); Neutrophils Absolute Auto 3400 /uL (1500-7000); Neutrophils Percent Auto 59.2 % (50-75); Platelet Count 276 X10^3/uL (150-400); Red Blood Cell Count 4.51 X10^6/uL (4.0-5.2); White Blood Cell Count 5.7 X10^3/uL (4.5-11.0)
[2024-09-22 12:16] LABS: Alanine Aminotransferase 25 IU/L (<35); Albumin 4.7 g/dL (3.5-5.0); Alkaline Phosphatase 63 U/L (38-126); Aspartate Aminotransferase 33 IU/L (14-36); BUN Creatinine Ratio 21.7 (6-22); Bilirubin Total 0.5 mg/dL (0.2-1.3); Blood Urea Nitrogen 18 mg/dL (7-17); C-Reactive Protein Quant < 0.5 mg/dL (<1.0); Calcium 9.9 mg/dL (8.4-10.2); Carbon Dioxide 28 mmol/L (22-32); Chloride 102 mmol/L (98-107); Estimated Glomerular Filt Rate > 60 mL/min (>60); Globulin 2.4 g/dL (1.7-4.1); Glucose 100 mg/dL (80-110); HEMOLYSIS < 15 (0-50); Potassium 4.5 mmol/L (3.4-5.1); Sodium 136 mmol/L (137-145); Total Protein 7.1 g/dL (6.3-8.2)
[2024-09-22 12:43] LABS: Thyroid Stimulating Hormone 1.18 uIU/mL (0.47-4.68)
[2024-09-25 10:12] LABS: Immunoglobulin E 136 IU/mL (6-495)
== END ==
PROVIDERS: PCP Family Medicine; Referring Provider Internal Medicine; Visit Provider Internal Medicine
DX: L50.3 Dermatographic urticaria (principal)
CPT/HCPCS: 36415; 80053; 82785; 83520; 84443; 85025; 86140

== ENCOUNTER → 2024-10-03 11:20 | Outpatient (CLI) | payer MEDICARE, OTHER, SELFPAY ==
[2018-05-03 10:56] VITALS: BMI 21.6
--- NOTE | 2024-10-03 11:28 | DI.RAD.S_ITS ---
PROCEDURE: XR CHEST 2V INDICATIONS: itching TECHNIQUE: 2 views of the chest were acquired. COMPARISON: None. FINDINGS: Heart, mediastinum and pulmonary vasculature: Heart is normal in size and configuration. Mediastinum is unremarkable. Pulmonary vascular is normal. Lungs: Clear Pleural spaces: Normal-no effusions or pneumothorax. Bones and soft tissues: Normal IMPRESSION: Normal chest. Dictated by: Diego Latif M.D. on 10/06/2024 at 7:03 Approved by: Diego Latif M.D. on 10/06/2024 at 7:04
== END ==
LOC: RAD 11:25
PROVIDERS: PCP Family Medicine; Referring Provider Internal Medicine; Visit Provider Internal Medicine
DX: L50.3 Dermatographic urticaria (principal); L29.9 Pruritus, unspecified
CPT/HCPCS: 71046

== ENCOUNTER → 2025-06-01 15:13 | Outpatient (CLI) | payer MEDICARE, OTHER, SELFPAY ==
[2018-05-03 10:56] VITALS: BMI 21.6
--- NOTE | 2025-06-01 15:15 | DI.RAD.S_ITS ---
PROCEDURE: XR DEXA AXIAL SKELETON INDICATIONS: menopausal, screening for osteoporosis COMPARISON: None. FINDINGS: Lumbar Spine: Bone mineral density 0.893 g/cm2, T score -1.4. Left Femoral Neck: Bone mineral density 0.744 g/cm2, T score -0.9. Left Hip: Bone mineral density 0.784 g/cm2, T score -1.3. Fracture Risk Calculation (when applicable): 10-year fracture risk of a major osteoporotic fracture 12 percent and of a hip fracture 3.4 percent. IMPRESSION: Osteopenia Follow-up guidelines as follows: Osteoporosis: Consider a repeat DEXA and Vertebral Fracture Assessment (VFA) exam in 2 years or sooner if medically necessary, to reassess this patient's status. Osteopenia: Consider a repeat DEXA in 2-3 years to reassess this patient's status, or if there is a new clinical indication. Normal: Consider a repeat DEXA in 5 years or sooner, or if there is a new clinical indication. All treatment decisions require clinical judgment and consideration of individual patient factors, including patient preferences, comorbidities, previous drug use, risk factors not captured in the FRAX model (e.g., frailty, falls, vitamin D deficiency, increased bone turnover, interval significant decline in bone density ) and possible under- or over-estimation of fracture risk by FRAX. In addition, the NOF Guide recommends that FDA-approved medical therapies be considered in postmenopausal women and men age >= 50 years with a: * Hip or vertebral (clinical or morphometric) fracture * T-score of <=-2.5 at the spine or hip * Ten-year fracture probability by FRAX of >= 3% for hip fracture or >=20% for major osteoporotic fracture. Dictated by: Moises Melara M.D. on 06/05/2025 at 10:49 Approved by: Moises Melara M.D. on 06/05/2025 at 10:50
== END ==
PROVIDERS: PCP Family Medicine; Referring Provider Family Medicine; Visit Provider Family Medicine
DX: Z13.820 Encounter for screening for osteoporosis (principal); M85.89 Other specified disorders of bone density and structure, multiple sites; N95.8 Other specified menopausal and perimenopausal disorders
CPT/HCPCS: 77080

== ENCOUNTER → 2025-08-21 11:01 | Outpatient (CLI) | payer MEDICARE, OTHER, SELFPAY ==
[2018-05-03 10:56] VITALS: BMI 21.6
--- NOTE | 2025-08-21 | DI.MG.S_ITS ---
MM screening mammo BI: 08/21/2025. BI-RADS: 1 CLINICAL: 75-year old female for bilateral screening mammogram. Tyrer-Cuzick lifetime risk of 4.4%. No personal or first-degree family history of breast cancer. PRIOR EXAMS 08/19/2024, 08/15/2023, 08/10/2022, 08/09/2021. MAMMOGRAPHY TECHNIQUE: 2D and 3D (tomosynthesis) digital mammographic views obtained, with additional images as needed for full coverage. Current study was also evaluated with a Computer Aided Detection (CAD) system. DENSITY C. The breasts are heterogeneously dense, which may obscure small masses. MAMMOGRAPHY FINDINGS Bilateral: No suspicious mass, asymmetry, microcalcification, or other abnormality seen. IMPRESSION: * No evidence of malignancy. RECOMMENDATIONS Bilateral * Annual screening mammography. OVERALL ASSESSMENT CATEGORY BI-RADS-1: Negative. The [employer] recommends annual screening mammography beginning at age 40 for women with average risk of breast cancer. ELECTRONICALLY SIGNED: Jean Ulloa M.D. on 08/21/2025 at 09:55:03 PM PT Interpreting Station ID: [id number]
== END ==
LOC: MAMMO 11:03
PROVIDERS: PCP Family Medicine; Referring Provider Family Medicine; Visit Provider Family Medicine
DX: Z12.31 Encounter for screening mammogram for malignant neoplasm of breast (principal); R92.333 Mammographic heterogeneous density, bilateral breasts
CPT/HCPCS: 77063; 77067